=== PATIENT | female | born 1995 | race African-American/Black ===

== ENCOUNTER 2023-07-17 20:15 | Inpatient (IN) | payer BC ==
[2023-07-17 21:17] VITALS: BMI 39.7
[2023-07-17] MEDS: DEXTROSE 5%-LACTATED RINGERS 1,000 ML IV SCH (22:30)
[2023-07-17 23:09] LABS: BASO % 0.7 % (0-2.0); EOS % 0.7 % (0-4.5); HEMATOCRIT 27.7 % (32.4-45.2); HEMOGLOBIN 9.1 GM/dL (10.7-15.3); LYMPH % 12.9 % (8-40); MCH 24.3 pg (25.7-33.7); MCHC 32.8 g/dl (32.0-36.0); MEAN PLT VOLUME 8.7 fl (7.5-11.1); MONO % 11.3 % (3.8-10.2); NEUT % 74.4 % (42.8-82.8); PLATELET COUNT 223 10^3/uL (134-434); RBC 3.74 M/mm3 (3.60-5.2); RDW 19.1 % (11.6-15.6); WHITE BLOOD COUNT 8.5 K/mm3 (4.0-10.0)
[2023-07-17] MEDS: MISOPROSTOL 100 MCG TABLET PV SCH (23:10)
[2023-07-17 23:17] LABS: INR 0.95 (0.83-1.09)
[2023-07-17 23:19] LABS: ACTIVATED PTT 24.3 SECONDS (25.2-36.5)
[2023-07-17 23:28] LABS: POTASSIUM 4.2 mmol/L (3.5-5.1)
[2023-07-17 23:30] LABS: ALBUMIN 2.6 g/dl (3.4-5.0); CALCIUM 9.3 mg/dL (8.5-10.1)
[2023-07-17 23:31] LABS: BLOOD UREA NITROGEN 9.9 mg/dL (7-18)
[2023-07-17 23:33] LABS: CREATININE 0.7 mg/dL (0.55-1.3)
[2023-07-17 23:35] LABS: BILIRUBIN,TOTAL 0.2 mg/dL (0.2-1); TOT PROT 6.3 g/dl (6.4-8.2)
[2023-07-18] MEDS: OXYTOCIN 30 UNITS in 0.9% NS 30 UNIT/500 ML INFUS.BAG IVPB SCH (08:10)
[2023-07-18] MEDS ORDERED: morphine SULFATE 4 MG/ML VIAL ONE ×2 (12:39→13:12)
[2023-07-18] MEDS: SODIUM CHLORIDE 500 ML IV STA (12:52)
[2023-07-18] MEDS: morphine SULFATE 4 MG/ML VIAL IVPUSH ONE (13:25)
[2023-07-18] MEDS ORDERED: LIDOCAINE HCL 1% PRESERVATIVE FREE - 30ML VIAL ONE (14:44)
[2023-07-18] MEDS ORDERED: OXYTOCIN 20 UNITS in 0.9% NS 20 UNIT/1,000 ML INFUS.BAG IV ONE (14:44)
[2023-07-18 15:47] LABS: CORD BASE EXCESS -6.7 mmol/L (0-2); CORD HCO3 20.2 mmHg (20-29); CORD PCO2 45.3 mmHg (30-78); CORD pH 7.268 (7.14-7.44)
[2023-07-18 15:50] LABS: CORD BASE EXCESS -4.4 mmol/L (0-2); CORD HCO3 23.2 mmHg (20-29); CORD PCO2 51.5 mmHg (30-78); CORD pH 7.272 (7.14-7.44)
[2023-07-18] MEDS ORDERED: BENZOCAINE 28 GM HEMORRHOIDAL OINTMENT TP PRN (15:57)
[2023-07-18] MEDS ORDERED: WITCH HAZEL 50% (TUCKS) 40 PAD/JAR PAD TP PRN (15:57)
[2023-07-18] MEDS ORDERED: OXYTOCIN 20 UNITS in 0.9% NS 20 UNIT/1,000 ML INFUS.BAG IV SCH (16:00)
[2023-07-18] MEDS: FERROUS SO4 325 MG TABLET (FP) PO SCH (17:47)
[2023-07-18] MEDS: IBUPROFEN 600 MG TABLET (FP) PO PRN (17:47)
[2023-07-18] MEDS: morphine SULFATE 4 MG/ML VIAL IVPB ONE (18:55)
[2023-07-18] MEDS: DOCUSATE SODIUM 100 MG CAPSULE (FP) PO SCH (21:00)
[2023-07-18] MEDS: ACETAMINOPHEN 325 MG TABLET (FP) PO PRN (23:53)
[2023-07-19 08:26] LABS: BASO % 0.2 % (0-2.0); EOS % 0.2 % (0-4.5); LYMPH % 11.9 % (8-40); MCH 22.9 pg (25.7-33.7); MCHC 30.5 g/dl (32.0-36.0); MEAN CELL VOLUME 75.2 fl (80-96); MEAN PLT VOLUME 9.5 fl (7.5-11.1); MONO % 11.4 % (3.8-10.2); NEUT % 76.3 % (42.8-82.8); PLATELET COUNT 195 10^3/uL (134-434); RBC 3.06 M/mm3 (3.60-5.2); RDW 19.6 % (11.6-15.6); WHITE BLOOD COUNT 11.9 K/mm3 (4.0-10.0)
[2023-07-19] MEDS: IRON SUCROSE INJECTION 300 MG in SODIUM CHLORIDE 235 ML IVPB ONE (14:40)
[2023-07-20 10:06] VITALS: BP 121/68; PULSE 95; RESP 17; TEMP 98.5
== END 2023-07-20 16:20 | disposition home or self-care (01) | DRG 560 ==
LOC: JLDR 20:15 → J3W 07-18 17:30
PROVIDERS: ADMIT Obstetrics & Gynecology Maternal & Fetal Medicine; ATTEND Obstetrics & Gynecology Maternal & Fetal Medicine
PROC: 10E0XZZ Delivery of Products of Conception, External Approach (ICD-10-PCS; principal; 2023-07-18)
PROC: 0W8NXZZ Division of Female Perineum, External Approach (ICD-10-PCS; 2023-07-18)
PROC: 0HQ9XZZ Repair Perineum Skin, External Approach (ICD-10-PCS; 2023-07-18)
DX: O14.94 Unspecified pre-eclampsia, complicating childbirth (principal); O13.4 Gestational [pregnancy-induced] hypertension without significant proteinuria, complicating childbirth; O99.214 Obesity complicating childbirth; O70.0 First degree perineal laceration during delivery; O24.424 Gestational diabetes mellitus in childbirth, insulin controlled; Z3A.38 38 weeks gestation of pregnancy; Z37.0 Single live birth
CPT/HCPCS: 36415; 36600; 80053; 82803; 82962; 85025; 85610; 85730; 86780; 86850; 86900; 86901; 88307-TC; J1756